=== PATIENT | female | born 1990 | race Caucasian/White ===

== ENCOUNTER 2025-04-01 19:38 | Inpatient (IN) | payer SELFPAY ==
[~2025-04-01 19:38] MED LIST: Iopamidol-370 76% 500 ML MDV (1 ML CHARGE) ONE
[2025-04-01 20:17] LABS: #Basophils 0.05 10x3/uL (0.0-0.2); #Eosinophils 0.19 10x3/uL (0.0-0.7); #Monocytes 0.71 10x3/uL (0.11-0.59); #Neutrophils 5.92 10x3/uL (1.40-6.50); %Basophils 0.5 % (0.0-1.0); %Eosinophils 1.9 % (0.0-10.0); %Lymphocytes 32.4 % (21.0-51.0); %Monocytes 6.9 % (0.0-10.0); %Neutrophils 57.7 % (42.0-75.0); Hematocrit 35.0 % (36.0-47.0); Hemoglobin 10.5 g/dL (12.0-16.0); Mean Corpuscular Hemoglobin 23.7 pg (27.0-31.0); Mean Corpuscular Volume 79.0 fL (78.0-98.0); Platelet Count 357 10x3/uL (130-400); Red Blood Cell (RBC) Count 4.43 mill/uL (4.20-5.40); White Blood Cell (WBC) Count 10.25 10x3/uL (4.8-10.8)
[2025-04-01] MEDS ORDERED: Ketorolac Tromethamine 30 MG (1 mL) VIAL ONE (20:25)
[2025-04-01] MEDS ORDERED: Ondansetron PF 4 MG/2 ML Vial ONE (20:26)
[2025-04-01 20:33] LABS: ALT (SGPT) 27 U/L (Less than 34); AST (SGOT) 22 U/L (11-34); Albumin 3.3 g/dL (3.1-4.5); Alkaline Phosphatase 101 U/L (40-110); Anion Gap 11 mmol/L (10-20); BUN (Urea Nitrogen) 14 mg/dL (7.0-18.7); Bilirubin, Total 0.2 mg/dL (0.3-1.2); Calc. Creatinine Clearance 0 mL/min (70-130); Calcium 8.8 mg/dL (7.8-10.44); Carbon Dioxide 26 mmol/L (22-29); Chloride 104 mmol/L (98-107); Globulin 3.8 g/dL (2.4-3.5); Glucose 105 mg/dL (70-105); Lipase 16 U/L (8-78); Potassium 4.3 mmol/L (3.5-5.1); Sodium 137 mmol/L (136-145)
[2025-04-01 20:39] LABS: BHCG - Serum Negative (NEGATIVE); Pregs Control Background? CLEAR/WHITE (CLR/WHITE); Pregs Control Bar Appear? YES (CONTROL BAR)
[2025-04-01] MEDS ORDERED: hydrALAZINE 20 MG/ML VIAL SLOW IVP PRN (22:49)
[2025-04-01] MEDS ORDERED: Ondansetron PF 4 MG/2 ML Vial IVP PRN (22:49)
[2025-04-01] MEDS ORDERED: Acetaminophen 325 MG TAB PO PRN (22:49)
[2025-04-02 01:44] VITALS: BMI 36.9
[2025-04-02 06:05] LABS: #Basophils 0.03 10x3/uL (0.0-0.2); #Eosinophils 0.19 10x3/uL (0.0-0.7); #Monocytes 0.55 10x3/uL (0.11-0.59); #Neutrophils 5.16 10x3/uL (1.40-6.50); %Basophils 0.3 % (0.0-1.0); %Eosinophils 2.1 % (0.0-10.0); %Lymphocytes 34.5 % (21.0-51.0); %Monocytes 6.0 % (0.0-10.0); %Neutrophils 56.8 % (42.0-75.0); Hematocrit 34.1 % (36.0-47.0); Hemoglobin 10.2 g/dL (12.0-16.0); Mean Corpuscular Hemoglobin 24.1 pg (27.0-31.0); Mean Corpuscular Volume 80.6 fL (78.0-98.0); Platelet Count 306 10x3/uL (130-400); Red Blood Cell (RBC) Count 4.23 mill/uL (4.20-5.40); White Blood Cell (WBC) Count 9.10 10x3/uL (4.8-10.8)
[2025-04-02 06:44] LABS: ALT (SGPT) 22 U/L (Less than 34); AST (SGOT) 19 U/L (11-34); Albumin 2.9 g/dL (3.1-4.5); Alkaline Phosphatase 87 U/L (40-110); Anion Gap 10 mmol/L (10-20); BUN (Urea Nitrogen) 12 mg/dL (7.0-18.7); Bilirubin, Total 0.3 mg/dL (0.3-1.2); Calc. Creatinine Clearance 127 mL/min (70-130); Calcium 8.1 mg/dL (7.8-10.44); Carbon Dioxide 25 mmol/L (22-29); Chloride 106 mmol/L (98-107); Globulin 3.3 g/dL (2.4-3.5); Glucose 97 mg/dL (70-105); Potassium 4.1 mmol/L (3.5-5.1); Sodium 137 mmol/L (136-145)
[2025-04-02 08:46] LABS: Bacteria/HPF None Seen HPF (None Seen); CAUTI Indications for Culture Dysuria,urgency,freq; Glucose, Urine (Dipstick) Normal (Negative); Leukocyte Negative Leu/uL (Negative); Protein, Urine (Dipstick) Negative (Neg-Trace); RBC/HPF 0-3 HPF (0-3); WBC/HPF 0-3 HPF (0-3)
[2025-04-02 08:47] LABS: Specific Gravity, Urine Greater than 1.050 (1.002-1.036)
[2025-04-02 08:48] LABS: Urine Culture Reflex No No
[2025-04-02 09:53] LABS: Cocaine Metabolite Screen Negative (Negative); THC/Cannabinoid Screen PRELIM POSITIVE (Negative); Tricyclic Screen Negative (Negative)
[2025-04-02] MEDS ORDERED: Ketorolac Tromethamine 30 MG (1 mL) VIAL IVP PRN (11:44)
[2025-04-02 12:09] VITALS: BP 145/90; TEMP 96.7
== END 2025-04-02 13:40 | disposition home or self-care (01) | DRG 446 ==
LOC: ERS 19:38 → ERHOLD 22:52 → SURG B 04-02 08:14
PROVIDERS: ADMIT Surgery; ATTEND Surgery
DX: K80.00 Calculus of gallbladder with acute cholecystitis without obstruction (principal); B18.2 Chronic viral hepatitis C; F12.10 Cannabis abuse, uncomplicated; F15.10 Other stimulant abuse, uncomplicated
CPT/HCPCS: 36415; 74177; 76705; 80053; 80306; 81001; 83690; 84484; 84703; 85025; 93005; 96365; 96375; J1885; J2270; J2405; J2543; J7120; Q9967